=== PATIENT | female | born 1960 | race Caucasian/White ===

== ENCOUNTER 2016-12-13 15:54 | Emergency (ER) | payer OTHER ==
[2016-12-13] MEDS ORDERED: HYDROmorphone 1 MG/ML SYRINGE IVP STA (16:22)
[2016-12-13] MEDS ORDERED: SODIUM CHLORIDE 0.9% 1,000 ML IV ONE (16:22)
--- NOTE | 2016-12-13 16:25 | ED Physician Documentation ---
PD HPI ABD PAIN - Stated complaint Stated Complaint: ABD PX - Chief complaint Chief Complaint: Abd Pain - History obtained from History obtained from: Patient - History of Present Illness Timing - onset: Other (56-year-old woman with history of transanal rectal cancer resection 2 years ago with clear colonoscopy since. No other abdominal surgeries. She also has a history of ulcer and H. pylori positivity. Today a little bit after eating sausage and eggs, couple of [place] developed severe epigastric pain radiating to the back not associated with vomiting or nausea. She's noted dark stools over the last week or so.) Review of Systems Ten Systems: 10 systems reviewed and negative Constitutional: reports: Reviewed and negative Nose: reports: Reviewed and negative Throat: reports: Reviewed and negative Cardiac: reports: Reviewed and negative PD PAST MEDICAL HISTORY - Past Medical History Past Medical History: Yes GI: Ulcers - Past Surgical History Past Surgical History: Yes General: Bowel surgery - Present Medications Home Medications: Ambulatory Orders Medication Instructions Recorded Confirmed Citalopram [CeleXA] 20 mg PO DAILY 12/13/16 12/13/16 HYDROcod/ACETAM 5/325 [[place] 5/325] 1 - 2 ea PO Q6H PRN #15 tablet 12/13/16 - Allergies Allergies/Adverse Reactions: Allergies Allergy/AdvReac Type Severity Reaction Status Date / Time No Known Drug Allergies Allergy Verified 12/13/16 16:01 - Living Situation Living Situation: reports: With spouse/s.o., Other (visiting from [place], [place]) - Social History Does the pt smoke?: No Does the pt drink ETOH?: No Does the pt have substance abuse?: No - Family History Family history: reports: Non contributory PD ED PE NORMAL - Vitals Vital signs reviewed: Yes - General General: Alert and oriented X 3, No acute distress - HEENT HEENT: PERRL, EOMI, Ears normal - Neck Neck: Supple, no meningeal sign, No bony TTP - Cardiac Cardiac: RRR, No murmur - Respiratory Respiratory: No respiratory distress, Clear bilaterally - Abdomen Abdomen: Other (Focally and significantly tender in the right upper quadrant more so than the epigastrium with positive Davis's sign, no surgical signs.) - Rectal Rectal: Other (With Lauren FLOOD chaperoning, brown guaiac negative stool, QC pass) - Back Back: No CVA TTP, No spinal TTP - Derm Derm: Normal color, Warm and dry - Extremities Extremities: No edema, No calf tenderness / cord - Neuro Neuro: Alert and oriented X 3, Normal speech - Psych Psych: Normal mood, Normal affect Results - Vitals Vitals: Vital Signs - 24 hr 12/13/16 12/13/16 15:57 17:17 Temperature 36.9 C Heart Rate 79 82 Respiratory 20 16 Rate Blood Pressure 140/87 H 118/68 O2 Saturation 100 96 Oxygen O2 Source Room air - Labs Labs: Laboratory Tests 12/13/16 12/13/16 16:15 16:15 WBC 8.1 RBC 4.67 Hgb 14.3 Hct 41.1 MCV 87.9 MCH 30.5 MCHC 34.7 RDW 13.3 Plt Count 219 MPV 7.7 L Neut # 5.4 Lymph # 1.9 [place] # 0.6 Eos # 0.1 Baso # 0.0 Absolute Nucleated RBC 0.00 Nucleated RBCs 0.0 Sodium 137 Potassium 4.0 Chloride 101 Carbon Dioxide 27 Anion Gap 9.0 BUN 20 Creatinine 0.9 Estimated GFR (MDRD) 65 L Glucose 102 H Calcium 9.4 Total Bilirubin 0.8 AST 18 ALT 18 Alkaline Phosphatase 72 Total Protein 7.4 Albumin 4.6 Globulin 2.8 Albumin/Globulin Ratio 1.6 Lipase 57 H - Rads (name of study) RUQ sono Radiology: EMP read contemporaneously (gallstones, fatty liver) PD MEDICAL DECISION MAKING - ED course ED course: 56-year-old woman with new onset apparent biliary colic with suggestive tenderness an ultrasound, relatively pain-free after a single dose of narcotics with benign laboratories. She wanted to followup in [facility]. She was given copies of her labs and ultrasound and will call her surgeon tomorrow. Departure - Departure Disposition: 01 Home, Self Care Clinical Impression: Biliary colic Condition: Good Record reviewed to determine appropriate education?: Yes Instructions: ED Gallstone W Biliary Colic Prescriptions: HYDROcod/ACETAM 5/325 [[place] 5/325] 1 - 2 ea PO Q6H PRN #15 tablet PRN Reason: Pain Comments: Call your surgeon tomorrow for followup, either light diet with minimal fat and protein until you followup. If you develop recurrent pain the last more than 2 hours return for reevaluation. Do not drink or drive while on narcotic pain medicine. Note that many narcotic pain relievers also contain tylenol/acetaminophen. Please ensure that your total dose of acetaminophen from all sources does not exceed 3 grams (3000mg) per day. You may constipated on this medication, take a stool softener such as "Colace" twice a day while you are on it. Also recommend a clol-neo-kbtsbik laxative such as senna or MiraLAX any day that you do not have a bowel movement. If you received narcotic pain medication in the emergency department, do not drive or operate machinery for the next 24 hours. Your blood pressure was elevated today on check in to the emergency department. This does not mean that you have hypertension, it is a common phenomenon to check into the emergency department and have elevated blood pressure. I recommend that you see your primary care physician within the week to have it rechecked when you're feeling better.
[2016-12-13] MEDS ORDERED: HYDROmorphone 1 MG/ML SYRINGE ONE (16:28)
[2016-12-13 16:32] LABS: BASOPHILS % (AUTO) 0.5 %; EOSINOPHILS # (AUTO) 0.1 10^3/uL (0.0-0.7); EOSINOPHILS % (AUTO) 1.2 %; HCT - HEMATOCRIT 41.1 % (37.0-47.0); HGB - HEMOGLOBIN 14.3 g/dL (12.0-16.0); LYMPHOCYTES # (AUTO) 1.9 10^3/uL (1.5-3.5); MEAN CORPUSCULAR HEMOGLOBIN 30.5 pg (27.0-31.0); MEAN CORPUSCULAR HGB CONC 34.7 g/dL (32.0-36.0); MEAN CORPUSCULAR VOLUME 87.9 fL (81.0-99.0); MEAN PLATELET VOLUME 7.7 fL (7.9-10.8); MONOCYTES # (AUTO) 0.6 10^3/uL (0.0-1.0); MONOCYTES % (AUTO) 7.6 %; NEUTROPHILS # (AUTO) 5.4 10^3/uL (1.5-6.6); NEUTROPHILS % (AUTO) 66.7 %; RED BLOOD COUNT 4.67 10^6/uL (4.20-5.40); RED CELL DISTRIBUTION WIDTH 13.3 % (12.0-15.0); UNCORRECTED WHITE BLOOD COUNT 8.1 x10^3/uL; WHITE BLOOD COUNT 8.1 x10^3/uL (4.8-10.8)
[2016-12-13 16:39] LABS: ALBUMIN/GLOBULIN RATIO 1.6 (1.0-2.2); BILIRUBIN,TOTAL 0.8 mg/dL (0.2-1.0); CALCIUM 9.4 mg/dL (8.5-10.3); CREATININE 0.9 mg/dL (0.4-1.0); TOTAL PROTEIN 7.4 g/dL (6.7-8.2)
--- NOTE | 2016-12-13 18:35 | Ultrasound Preliminary Report ---
Exam: US Abdomen Limited IMPRESSION: 1. Multiple cholelithiasis without wall thickening or ductal dilatation. 2. Prominent fatty liver. [facility] SITE ID: [id number]
--- NOTE | 2016-12-13 18:37 | Ultrasound Report ---
EXAM: ABDOMEN ULTRASOUND LIMITED, RUQ EXAM DATE: 12/13/2016 06:18 PM. CLINICAL HISTORY: RUQ pain. COMPARISON: None. TECHNIQUE: Real-time scanning was performed with static images obtained. FINDINGS: Liver: Prominent and diffusely echogenic with mild heterogeneity. 19.5 cm. Main portal vein flow: Hep atopetal. Gallbladder: Sludge and stones in the gallbladder. No wall thickening. Biliary System: CBD measures 4 mm. No intrahepatic or extrahepatic ductal dilatation. Other: The visualized pancreas and right kidney are unremarkable. No free fluid. IMPRESSION: 1. Multiple cholelithiasis without wall thickening or ductal dilatation. 2. Prominent fatty liver. [facility] Referring Provider Line: [phone] SITE ID: [id number]
[2016-12-13] MEDS ORDERED: HYDROcod/ACET 5/325 Prepack 6 PO STA (18:40)
[2016-12-13] MEDS ORDERED: HYDROcod/ACET 5/325 Prepack 6 PO ONE (18:42)
[2016-12-13 18:54] VITALS: BP 139/61
== END 2016-12-13 18:54 | disposition home or self-care (01) ==
LOC: ED 15:54
DX: K80.20 Calculus of gallbladder without cholecystitis without obstruction (principal); K76.0 Fatty (change of) liver, not elsewhere classified; R03.0 Elevated blood-pressure reading, without diagnosis of hypertension; Z85.048 Personal history of other malignant neoplasm of rectum, rectosigmoid junction, and anus; Z87.11 Personal history of peptic ulcer disease
CPT/HCPCS: 36415; 76705; 80053; 83690; 85025; 96374; 99283; 99284; J1170

== ENCOUNTER 2018-08-23 11:26 | Emergency (ER) | payer OTHER ==
[2018-08-23] MEDS ORDERED: BACITRACIN OINT TOP STA (11:57)
--- NOTE | 2018-08-23 11:59 | ED Physician Documentation ---
PD HPI LOWER EXT INJURY - Stated complaint Stated Complaint: LEFT LEG LAC - Chief complaint Chief Complaint: Laceration - History obtained from History obtained from: Patient - History of Present Illness PD HPI LOW EXT INJURY LOCATION: Left, Calf Type of injury: Laceration (broken mirror) Where injury occurred: Home Timing - onset: How many hours ago (3) Timing - duration: Hours (3) Timing - details: Abrupt onset Pain level max: 5 Pain level now: 2 Improved by: Rest Worsened by: Moving, Palpating Associated symptoms: No: Weakness, Numbness, Tingling Contributing factors: No: Anticoagulated Similar symptoms before: Has not had sx before Recently seen: Not recently seen - Additional information Additional information: td UTD Review of Systems Neurologic: denies: Focal weakness, Numbness PD PAST MEDICAL HISTORY - Past Medical History Past Medical History: Yes GI: Ulcers Psych: Depression - Past Surgical History Past Surgical History: Yes General: Bowel surgery - Present Medications Home Medications: Ambulatory Orders Medication Instructions Recorded Confirmed Citalopram [CeleXA] 20 mg PO DAILY 12/13/16 08/23/18 - Allergies Allergies/Adverse Reactions: Allergies Allergy/AdvReac Type Severity Reaction Status Date / Time No Known Drug Allergies Allergy Verified 08/23/18 11:33 - Social History Does the pt smoke?: No Smoking Status: Never smoker Does the pt drink ETOH?: No Does the pt have substance abuse?: No - Immunizations Immunizations are current?: Yes PD ED PE NORMAL - Vitals Vital signs reviewed: Yes - General General: Alert and oriented X 3, No acute distress - HEENT HEENT: Moist mucous membranes - Neck Neck: Supple, no meningeal sign - Derm Derm: Warm and dry - Extremities Extremities: Other (L calf - NVI. 5cm linear laceration. into subcutaneous fat. ) - Neuro Neuro: Alert and oriented X 3 Results - Vitals Vitals: Vital Signs - 24 hr 08/23/18 08/23/18 11:32 12:53 Temperature 36.8 C Heart Rate 102 H 88 Respiratory 16 16 Rate Blood Pressure 142/89 H 138/89 H O2 Saturation 99 100 Oxygen O2 Source Room air Procedures - Laceration (location) L calf Length in cm: 5 Wound type: Linear, Into subcut fat Neurovascular status: Sensory intact, Motor intact, Vascular intact Anesthesia: Lidocaine 2% with epi Wound Preparation: Irrigated copiously NS, Wound explored, To the base. No: FB identified Skin layer closure: Cordell Other: Patient tolerated well, No complications, Neurovascular intact, Dressing applied, Tetanus UTD Complexity: Simple PD MEDICAL DECISION MAKING - ED course Complexity details: considered differential, d/w patient ED course: 57-year-old female with a left leg laceration. Repaired with cordell. Tolerated well. Tetanus up-to-date. Warnings of infection and instructions on wound care given at bedside. Also counseled on how to minimize scarring. Patient counseled regarding signs and symptoms for which I believe and urgent re-evaluation would be necessary. Patient with good understanding of and agreement to plan and is comfortable going home at this time This document was made in part using voice recognition software. While efforts are made to proofread this document, sound alike and grammatical errors may occur. Departure - Departure Disposition: 01 Home, Self Care Clinical Impression: Laceration of leg not thigh, left Qualifiers: Encounter type: initial encounter Qualified Code(s): S81.812A - Laceration without foreign body, left lower leg, initial encounter Condition: Good Instructions: ED Laceration Ext Sutr Stap Tape Follow-Up: MIKAYLA DOMINGUEZ MD [Primary Care Provider] - (in 10-14 days for staple removal.) Comments: Return if you worsen. Keep the wound clean. Sunflower should be removed in 10-14 days with your doctor. Return for redness, swelling, or drainage from the wound. Discharge Date/Time: 08/23/18 12:53
[2018-08-23] MEDS ORDERED: LIDOCAINE 2%-EPI 1:100000 20 ML MDV SUBQ STA (12:03)
[2018-08-23 12:55] VITALS: BP 138/89
== END 2018-08-23 12:53 | disposition home or self-care (01) ==
LOC: ED 11:26
DX: S81.812A Laceration without foreign body, left lower leg, initial encounter (principal); W45.8XXA Other foreign body or object entering through skin, initial encounter; Y92.009 Unspecified place in unspecified non-institutional (private) residence as the place of occurrence of the external cause
CPT/HCPCS: 12002; 99282; 99283; A9270